=== PATIENT | female | born 1985 | race Hispanic/Latino ===

== ENCOUNTER → 2024-11-01 10:41 | Outpatient (REF) | payer OTHER, SELFPAY ==
[2024-11-01 12:28] LABS: % Basophils 0.9 % (0-2); % Eosinophils 3.3 % (0-6); % Immature Granulocytes 0.2 % (0-0.5); % Lymphocytes 33.2 % (20.5-51.1); % Neutrophils 56.4 % (42.2-75.2); Absolute Basophils 0.1 10^3/uL (0-0.2); Absolute Eosinophils 0.2 10^3/uL (0-0.7); Absolute Lymphocytes 1.8 10^3/uL (1.2-3.4); Absolute Monocytes 0.3 10^3/uL (0.1-0.6); Absolute Neutrophils 3.1 10^3/uL (1.4-6.5); Hematocrit 40.3 % (37.0-47.0); Hemoglobin 13.9 g/dL (12.0-16.0); Mean Corp Hgb Conc. 34.5 g/dL (33.0-37.0); Mean Platelet Volume 8.9 fL (7.4-10.4); Nucleated Red Blood Cells % 0 %; Platelet Count 291 10^3/uL (130-400); Red Blood Cell Count 4.63 10^6/uL (4.20-5.40); Red Cell Dist. Width 12.5 % (11.5-14.5); White Blood Cell Count 5.5 10^3/uL (4.8-10.8)
[2024-11-01 13:12] LABS: Vitamin D, 25-OH*** 19.7 ng/mL (30-80)
[2024-11-01 13:19] LABS: ALT (SGPT) 15 U/L (0-35); AST (SGOT) 21 U/L (14-36); Alkaline Phosphatase 87 U/L (38-126); Blood Urea Nitrogen 18 mg/dl (7-17); Carbon Dioxide 25 mmol/L (22-30); Chloride 102 mmol/L (98-107); Glucose 92 mg/dl (70-99); Potassium 4.3 mmol/L (3.5-5.1); Sodium 136 mmol/L (135-145); Total Bilirubin 0.5 mg/dl (0.2-1.3); Total Cholesterol 196 mg/dl (50-199); Total Protein 7.2 g/dl (6.3-8.2); Triglyceride 150 mg/dl (10-149); Very Low Density Lipoprotein 30 mg/dl (0-30); eGFR > 60.00
[2024-11-01 13:26] LABS: HDL Cholesterol 38 mg/dl; LDL Cholesterol, Calculated 128 mg/dl; TSH Reflex To Free T4 1.54 uIU/ml (0.47-4.68)
[2024-11-01 13:35] LABS: Glycohemoglobin (HgbA1c) 5.6 % (4.0-5.6)
== END ==
LOC: CLINIC 10:41
PROVIDERS: ATTENDING PHYSICIAN Student in an Organized Health Care Education/Training Program; FAMILY PHYSICIAN Nurse Practitioner Adult Health
DX: Z00.00 Encounter for general adult medical examination without abnormal findings (principal)
CPT/HCPCS: 36415; 80053; 80061; 82306; 83036; 84443; 85025